=== PATIENT | male | born 1965 | race Caucasian/White ===

== ENCOUNTER 2021-11-16 07:23 | Emergency (ER) | payer OTHER, SELFPAY ==
[2021-11-16 07:24] VITALS: BP 128/86; PULSE 94; RESP 20; TEMP 37.7; O2SAT 95; BMI 38.4
--- NOTE | 2021-11-16 07:36 | PC.NURSE ---
RN in room triaging and obtaining labs. tech collect nasal swab
--- NOTE | 2021-11-16 07:57 | XR_ITS ---
PROCEDURE INFORMATION: Exam: XR Chest Exam date and time: 11/16/2021 8:00 AM Age: 55 years old Clinical indication: Cough; Additional info: Cough x 2 weeks. TECHNIQUE: Imaging protocol: Radiologic exam of the chest. Views: 1 view. COMPARISON: CR CXR CHEST(2 VIEWS-NOT PORTABLE) 03/16/2017 8:51 AM FINDINGS: Lungs: Patchy bibasilar airspace opacities. Pleural spaces: Unremarkable. No pleural effusion. No pneumothorax. Heart/Mediastinum: Unremarkable. No cardiomegaly. Bones/joints: Unremarkable. IMPRESSION: Patchy bibasilar airspace opacities may reflect atelectasis versus pneumonia.
--- NOTE | 2021-11-16 07:57 | PC.NURSE ---
ED MD AT BEDSIDE
--- NOTE | 2021-11-16 07:59 | [facility].EDURI ---
ED Disposition Clinical Impression: COVID-19, Pneumonia due to 2019 novel coronavirus Disposition: Home, Self-Care Condition on Discharge: Fair Instructions: Coronavirus Disease 2019, How to Care for Someone with COVID-19, Preventing the Spread of Coronavirus Discharge Instructions Additional Instructions: Follow-up with your primary care physician in approximately 1 week if you do not feel better. You may take [id number] ibuprofen and/or Tylenol for your symptoms. You may also take [id number] cough medications as needed. Return to the emergency department immediately if you feel worse in any way, if you notice a blue discoloration around your lips. Or if you notice that your oxygen saturations on room air are 90% or lower and persistent that way. Referrals: Donna Mireles [Primary Care Provider] - - Critical Care Critical Care Time: No Attestation: On 11/16/21, the high probability of a clinically significant, sudden or life threatening deterioration of the following system(s) required my full and direct attention, intervention and personal management. The time I documented below is in addition to time spent performing reported procedures but includes the following listed in this critical care notation. Medical Decision Making - Medical Records Medical records reviewed: Yes: I reviewed the patient's medical records. - Serafin Inquiry Pt receiving controlled substance: No Vital Signs: 11/16/21 07:24 11/16/21 08:00 Temperature 99.9 F H Temperature Source Oral Pulse Rate 96 H Pulse Rate [Brachial] 94 H Respiratory Rate 20 18 Blood Pressure 127/80 Blood Pressure [Left Arm] 128/86 Blood Pressure Mean 90 Blood Pressure Mean [Left Arm] 100 Blood Pressure Source [Left Arm] Automatic Cuff Blood Pressure Position [Left Arm] Sitting 02 Sat by Pulse Oximetry 95 95 Oxygen Delivery Method Room Air - Lab Data Lab results reviewed: Yes: I reviewed the patient's lab results. Lab Results 11/16/21 07:55: WBC 8.8, RBC 5.61, Hgb 16.1, Hct 50.1, MCV 89.3, MCH 28.6, MCHC 32.0, RDW 13.5, Plt Count 149, MPV 10.6 H, Neut % (Auto) 81.9 H, Lymph % (Auto) 9.4 L, [place] % (Auto) 6.8, Eos % (Auto) 0.1, Baso % (Auto) 1.8, Neut # (Auto) 7.2, Lymph # (Auto) 0.8, [place] # (Auto) 0.6, Eos # (Auto) 0.0, Baso # (Auto) 0.2 11/16/21 07:55: Sodium 138, Potassium 3.7, Chloride 101, Carbon Dioxide 28, Anion Gap 12.7, BUN 18, Creatinine 1.10, Estimated Creat Clear 125, Estimated GFR 69, Est GFR ( Amer) 84, Glucose 121 H, Calcium 8.2 L, Total Bilirubin 0.7, AST 44, ALT 39, Alkaline Phosphatase 66, Total Protein 7.3, Albumin 4.0, Globulin 3.3 H, Albumin/Globulin Ratio 1.2 11/16/21 07:55: SARS-CoV-2 (PCR) Detected A, Influenza A Untype (PCR) Not detected, Influenza Type B (PCR) Not detected 11/16/21 07:55: Lactate 1.1 Result diagrams: 11/16/21 07:55 11/16/21 07:55 Orders (Tests/Meds): ORDERS Category Date Time Status Blood Culture Stat Micro 11/16/21 07:55 Received ECG Request by /Luz Stat Y 11/16/21 07:49 Ordered - Radiology Data #1 Image(s): Chest Image Reviewed: Yes I reviewed the patient's radiology results, Yes I have reviewed radiologist's interpretation Preliminary Findings: Abnormal (Bilat infiltrates) - ECG Data Tracing #1 I reviewed this ECG and interpreted as documented below: Patient is EKG was done at 8:23 AM. Shows a normal sinus rhythm with a ventricular rate of 92 bpm. No evidence of ischemia. The intervals are normal. The axes are also normal. No acute disease. Normal Sinus Rhythm: Yes Medical Decision Narrative: The patient's work-up in the emergency department revealed that the patient has tested positive for COVID-19. He has not been vaccinated. His oxygen saturations are 97% on room air. His chest x-ray shows some infiltrates. Strongly suggest that the patient has COVID-19 pneumonia but is currently stable enough to be discharged home. I recommended to the [facility]
[2021-11-16 08:00] VITALS: BP 127/80; PULSE 96; RESP 18; O2SAT 95
[2021-11-16 08:06] LABS: Influenza A, PCR Not Detected (NotDetected); Influenza B, PCR Not Detected (NotDetected)
--- NOTE | 2021-11-16 08:09 | PC.NURSE ---
pt in room w visitor @ [facility]
[2021-11-16 08:10] LABS: Basophils # 0.2 K/mm3 (0-0.2); Basophils % 1.8 % (0.1-2.0); Eosinophils % 0.1 % (0.1-12.0); Hematocrit 50.1 % (42.0-52.0); Hemoglobin 16.1 g/dL (14.1-18.0); Lymphocytes # 0.8 K/mm3 (0.7-4.5); Lymphocytes % 9.4 % (10-50); Mean Corpuscular Hemoglobin 28.6 pg (27.0-31.2); Mean Corpuscular Volume 89.3 fl (80-94); Mean Platelet Volume 10.6 fl (7.4-10.4); Monocytes # 0.6 K/mm3 (0.1-1.0); Monocytes % 6.8 % (1.7-9.3); Neutrophils # 7.2 K/mm3 (1.8-7.8); Neutrophils % 81.9 % (37.0-80.0); Platelet Count 149 K/mm3 (142-424); Red Blood Count 5.61 M/mm3 (4.60-6.20); Red Cell Distribution Width 13.5 % (11.5-17.5); White Blood Count 8.8 K/mm3 (4.8-10.8)
[2021-11-16 08:15] LABS: Lactic Acid 1.1 mmol/L (0.7-2.1)
[2021-11-16 08:16] LABS: Alanine Aminotransferase 39 U/L (12-78); Albumin/Globulin Ratio 1.2 (1.1-1.8); Alkaline Phosphatase 66 U/L (38-126); Anion Gap 12.7 mEq/L (5-15); Aspartate Amino Transferase 44 U/L (17-59); Bilirubin,Total 0.7 mg/dl (0.2-1.3); Blood Urea Nitrogen 18 mg/dl (9-20); Calcium 8.2 mg/dl (8.4-10.2); Carbon Dioxide 28 mmol/L (22.0-30.0); Chloride 101 mmol/L (98-107); Creatinine Clearance Estimated 125 mL/min (50-200); Estimated Glomerular Filt Rate 69 ml/min (>60); GFR (African American) 84 ML/MIN (>60); Globulin 3.3 g/dL (1.3-3.2); Glucose 121 mg/dl (74-100); Potassium 3.7 mmoL/L (3.5-5.1); Sodium 138 mmol/L (136-145); Total Protein,Serum 7.3 g/dl (6.3-8.2)
--- NOTE | 2021-11-16 08:22 | ECG_ITS ---
APPROVED REPORT Exam: Resting ECG HR:92 bpm ECG Measurements Heart Rate 92 AXES AL 146 P 29 QRSd 106 QRS -3 QT 347 T 45 QTc 397 Conclusion SINUS RHYTHM NONSPECIFIC T-WAVE ABNORMALITY BORDERLINE ECG UNCONFIRMED REPORT Electronically signed by : Messi Peraza MD 11/20/2021 17:50:54
[2021-11-16 08:43] LABS: Coronavirus 19, PCR Detected (NotDetected)
[2021-11-16 09:05] VITALS: BP 127/80; PULSE 87; RESP 20; TEMP 37.7; O2SAT 98
== END 2021-11-16 09:05 | disposition home or self-care (01) ==
PROVIDERS: Emergency Provider Emergency Medicine; PCP Family Medicine
DX: U07.1 COVID-19 (principal); R50.9 Fever, unspecified; R05.9 Cough, unspecified; R42 Dizziness and giddiness; R11.0 Nausea; R19.7 Diarrhea, unspecified
CPT/HCPCS: 71045; 80053; 83605; 85025; 87040; 93005; 99283; C9803; U0003; U0005

== ENCOUNTER → 2022-11-30 15:18 | Outpatient (CLI) | payer OTHER, SELFPAY ==
--- NOTE | 2022-11-30 15:24 | XR_ITS ---
FINAL REPORT CLINICAL HISTORY: Right foot pain COMPARISON: None FINDINGS: AP, oblique and lateral views of the right foot were obtained. There is no prior exam for comparison. There is no acute fracture or dislocation. 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 Soft tissues are normal. IMPRESSION: No acute osseous abnormality of the right foot. Reviewed, Interpreted and Dictated by Sharron Robledo MD Transcribed by Purvi Ibrahim Authenticated and [facility]
--- NOTE | 2022-11-30 15:24 | XR_ITS ---
FINAL REPORT CLINICAL HISTORY: Left foot pain COMPARISON: None FINDINGS: AP, oblique and lateral views of the left foot were obtained. There is no prior exam for comparison. There is no acute fracture or dislocation. Mild degenerative joint disease, most pronounced at the first MTP. Soft tissues are normal. IMPRESSION: No acute osseous abnormality of the left foot. Reviewed, Interpreted and Dictated by Sharron Robledo MD Transcribed by Purvi Ibrahim Authenticated and [facility]
== END ==
LOC: RAD 15:19
PROVIDERS: PCP Physician Assistant; Visit Provider Podiatrist
DX: M79.671 Pain in right foot (principal); M79.672 Pain in left foot
CPT/HCPCS: 73630